=== PATIENT | male | born 1965 | race Caucasian/White ===

== ENCOUNTER 2018-05-12 08:03 | Emergency (ER) | payer OTHER | END 2018-05-12 10:26 | disposition home or self-care (01) | LOC: E/R 08:03 | DX: S01.81XA Laceration without foreign body of other part of head, initial encounter (principal); S09.90XA Unspecified injury of head, initial encounter; W22.09XA Striking against other stationary object, initial encounter; Y92.89 Other specified places as the place of occurrence of the external cause; Z79.01 Long term (current) use of anticoagulants | CPT/HCPCS: 12013; 70450; 99284-25 ==